=== PATIENT | female | born 2000 | race Two or more races ===

== ENCOUNTER 2023-04-16 17:27 | Outpatient (REF) | payer MEDICAID, SELFPAY ==
[2023-04-17 03:39] LABS: CT PCR NOT DETECTED (Not Detect.); NG PCR NOT DETECTED (Not Detect.)
[2023-04-17 14:16] LABS: BV Int Neg Control Negative (Negative); BV Int Pos Control Positive (Positive)
== END 2023-04-16 17:28 | disposition home or self-care (01) ==
LOC: HO.CHCLNP 17:27
PROVIDERS: Visit Provider Family Medicine
DX: N76.0 Acute vaginitis (principal); Z20.2 Contact with and (suspected) exposure to infections with a predominantly sexual mode of transmission; Z12.4 Encounter for screening for malignant neoplasm of cervix
CPT/HCPCS: 0353U; 87480; 87510; 87660; 88142

== ENCOUNTER 2024-01-08 11:23 | Outpatient (REF) | payer MEDICAID, SELFPAY ==
[2024-01-08 15:23] LABS: TSH reflex Free T4 0.96 uIU/mL (0.32-4.0)
[2024-01-08 18:43] LABS: Influenza A PCR NEGATIVE (Negative); Influenza B PCR NEGATIVE (Negative); Resp Syncy Virus RNA Qual PCR NEGATIVE (Negative); SARS COV2 PCR INHOUSE NEGATIVE (Negative)
[2024-01-11 03:25] LABS: Syphilis Screen Nonreactive (Nonreactive)
[2024-01-11 04:08] LABS: HIV AB/AG Nonreactive (Nonreactive); HIV Num 1 0.07 S/CO (0.00-0.99); ~HepC Num1 0.09 S/CO (0.00-0.79); ~Hepatitis C Antibody Nonreactive (Nonreactive)
[2024-01-11 23:13] LABS: Prolactin Undiluted 8.4 ng/mL
[2024-01-22 19:23] LABS: Testosterone, Free 3.1 pg/mL (0.1-6.4); Testosterone, Total 34 ng/dL (2-45)
== END 2024-01-08 11:24 | disposition home or self-care (01) ==
LOC: HO.CHCLDS 11:23
PROVIDERS: Visit Provider Family Medicine
DX: R09.81 Nasal congestion (principal); N93.9 Abnormal uterine and vaginal bleeding, unspecified; Z11.3 Encounter for screening for infections with a predominantly sexual mode of transmission
CPT/HCPCS: 0241U; 36415; 83498; 84146; 84402; 84403; 84443; 86780; 86803; 87389

== ENCOUNTER 2025-07-06 14:40 | Outpatient (REF) | payer MEDICAID, SELFPAY ==
--- OUTSIDE RECORDS SUMMARY | 2025-07-06 13:45 | XMS_ITS | Encounter Summary ---
Author Organization [employer] Address [address] [place] [address] Care Team Providers Care Technology Training Associate Name Role Phone Makeda Arteaga MD Primary Care Provider [phone] Reason for Referral * (Routine) - Authorized Specialty Diagnoses / Procedures Referred By Contac t Referred To Contact Diagnoses Encounter for immunization Procedures FLU VACCINE TRIVALENT [phone] (Fluarix) 19 yrs + Makeda Arteaga MD [address] [place] [address] Phone: tel: fax: Referral ID Status Reason Start Date Expiration Date V isits Requested Visits Authorized [id number] Authorized 07/06/2025 07/06/2026 1 1 Reason for Visit * Reason Comments Follow-up Encounter Details Date Type Department Care Team ([facility] st Contact Info) Description 07/06/2025 1:45 PM EST Office Visit [facility] MED & PEDS [address] [place] [address] Makeda Arteaga MD [address] [place] [address] Class 2 obesity without serious comorbidity with body mass index (BMI) of 39.0 to 39.9 in adult, unspecified obesity type (Primary Dx); Dietary counseling; Exercise counseling; Class 2 severe obesity with serious comorbidity and body mass index (BMI) of 36.0 to 36.9 in adult, unspecified obesity type; Abnormal uterine bleeding (AUB); Encounter for immunization Social History Tobacco Use Types Packs/Day Years Used Date Smoking Tobacco: Unknown Depression Answer Date Recorded Patient Health Questionnaire-9 Score 2 06/06/2024 Patient Health Questionnaire-9 Score 2 06/06/2024 Last PHQ-9: Questionnaire Data Not on file 1 08/06/2023 Housing Stability Answer Date Recorded What is your housing situation today? I have lindy gusman 05/26/[address] you li ve. Do you have problems with any of the following? None of the above 05/26/2023 Food Insecurity Answer Date Recorded Within the past 12 months, y ou worried that your food would run out before you got money to buy more: Never True 05/26/2023 Within the past 12 months,th e food you bought just didn't last and you didn't have enough money to get more: Never True Transportation Answer Date Recorded In the past 12 months, has l ack of transportation kept you from medical appts, meetings, work or from getting things needed for daily living? No 05/26/2023 Utilities Answer Date Recorded In the past 12 months, has t he electric, gas, oil or water company threatened to shut off services in your home? No 05/26/2023 Depression Answer Date Recorded Patient Health Questionnaire-2 Score 0 06/06/2024 Internet Access Answer Date Recorded Internet Access Q1 Yes 03/28/2024 Internet Access Q2 Not on file 03/28/2024 Comments No Sex and Gender Information Value Date Recorded Sex Assigned at Female 10/23/2022 4:32 PM EDT Legal Sex Female 4:30 PM EDT Gender Identity Female 10/23/2022 4:32 PM EDT Sexual Orientation Straight 10/23/2022 4: 32 PM EDT documented as of this encounter Last Filed Vital Signs Vital Sign Reading Time Taken Comments Blood Pressure 132/84 07/06/2025 1:53 PM EST Pulse 84 07/06/2025 1:53 PM EST Temperature 36.9 C (98.4 F) 07/06/2025 1:53 PM EST Respiratory Rate 20 07/06/2025 1:53 PM EST Oxygen Saturation 98% 07/06/2025 1:53 PM EST Inhaled Oxygen Concentration - - Weight 108 kg (237 lb 3.2 oz) 07/06/2025 1:53 PM EST Height 171 cm (5' 7.32 ) 07/06/2025 1:53 PM EST Body Mass Index 36.8 07/06/2025 1:53 PM EST documented in this encounter Progress Notes * Makeda Arteaga MD - 07/06/2025 1:45 PM EST Subjective Patient ID: Al Rob is a 25 y.o. female who presents for Follow-up. Al Rob is a female patient presenting for follow-up regarding weight management, suspected hormone imbalance, and gastrointestinal symptoms. She reports concerns about hormone imbalance, noting increased hair growth on her mustache and chest since discontinuing her previous medication, along with changes in her intrinsic sexual desire. She describes persistent gastrointestinal symptoms including chronic stomach inflammation, bloating, and a rock-hard feeling in her abdomen, though shenotes more regular bowel movements with increased water intake and dietary changes. The patient had been on GLP-1 medication (initially Wegovy, then switched to Zepbound due to insurance requirements) for weight management but discontinued treatment due to loss of insurance coverage. She achieved significant weight loss, starting at 252 pounds in April of last year, reaching a low of 215 pounds in October, then 223 pounds in January, and currently weighs 237 pounds. She reports responding well to Zepbound and expresses desire to restart the medication if insurance is able to cover prescription. She continues to experience migraines for which Tylenol is ineffective, requesting ibuprofen for management. The patient did not complete ordered laboratory work in January and acknowledges this non-adherence. She reports a significant family stressor, noting that her mother recently fainted while doing hair, was unconscious for an hour, is currently hospitalized, and has surgery scheduled for July 13. Medical History - Diabetes mellitus - PCOS (polycystic ovary syndrome) - being tested for Medications: - Wegovy - Started in April last year, switched to Zepbound due to insurance - Zepbound - Switched from Wegovy due to insurance, discontinued when lost insurance, responded well with fewer side effects compared to Wegovy Family History - Mother: Recent hospitalization for syncope, scheduled for surgery on July 13 Social History - Diet: Currently changing diet and drinking more water - Exercise: Advised to continue with exercise routine - Substance Use: No soda consumption Immunizations - Influenza: Patient accepted flu shot during this visit Review of Systems Gastrointestinal: Positive for abdominal bloating and inflammation, reports stomach feels rock hard. Endocrine: Positive for hair growth on mustache and chest, decreased intrinsic sexual desire. Neurological: Positive for migraines, reports Tylenol is not effective. Review of Systems Objective BP 132/84 Pulse 84 Temp 98.4 ??F (36.9 ??C) (Oral) Resp 20 Ht 5' 7.32 (1.71 m) Wt 237 lb3.2 oz (108 kg) SpO2 98% BMI 36.80 kg/m?? Physical Exam Constitutional: General: She is not in acute distress. Appearance: She is obese. She is not ill-appearing. HENT: Head: Normocephalic and atraumatic. Nose: No congestion. Pulmonary: Effort: Pulmonary effort is normal. No respiratory distress. Breath sounds: Normal breath sounds. Musculoskeletal: Cervical back: Normal range of motion. Neurological: General: No focal deficit present. Mental Status: She is alert. Psychiatric: Mood and Affect: Mood normal. Assessment/Plan Problem List Items Addressed This Visit Class 2 obesity without serious comorbidity with body mass index (BMI) of 39.0 to 39.9 in adult - Primary Relevant Medications Tirzepatide-Weight Management (Zepbound) 2.5 MG/0.5ML solution auto-injector Other Relevant Orders Lipid Panel, Standard Abnormal uterine bleeding (AUB) Relevant Medications ibuprofen 800 MG tablet Other Relevant Orders 17-Hydroxyprogesterone Comprehensive metabolic panel Insulin, fasting , urine Prolactin Testosterone, free, total TSH Other Visit Diagnoses Dietary counseling Relevant Medications Tirzepatide-Weight Management (Zepbound) 2.5 MG/0.5ML solution auto-injector Exercise counseling Relevant Medications Tirzepatide-Weight Management (Zepbound) 2.5 MG/0.5ML solution auto-injector Class 2 severe obesity with serious comorbidity and body mass index (BMI) of 36.0 to 36.9 in adult,unspecified obesity type Relevant Medications Tirzepatide-Weight Management (Zepbound) 2.5 MG/0.5ML solution auto-injector Encounter for immunization Relevant Medications ibuprofen 800 MG tablet Other Relevant Orders FLU VACCINE TRIVALENT [phone] (Fluarix) 19 yrs + (Completed) Al Rob is a female patient with diabetes and obesity presenting for hormone imbalance concerns, gastrointestinal symptoms, and weight management follow-up after discontinuing GLP-1 medication due to insurance issues. Suspected hormone imbalance Assessment: Patient reports symptoms suggestive of hormonal imbalance including increased hair growth on mustache and chest since discontinuing previous medication, decreased intrinsic sexual desire,and associated pain. These symptoms were not present when she was on her previous medication regimen. Clinical suspicion for PCOS given the hirsutism presentation. Plan: - Order hormone testing for PCOS evaluation - Schedule pelvic ultrasound on July 13 Gastrointestinal symptoms Assessment: Patient experiencing chronic abdominal bloating and inflammation with rock-hard feelingin stomach. She reports improved bowel regularity with increased water intake and dietary modifications. Plan: - Continue current dietary modifications and increased water intake Obesity and diabetes management Assessment: Patient has lost 29 pounds total, starting at 252 pounds, reaching lowest weight of 215pounds in October, with current weight of 237 pounds. Previously responded well to Wegovy then Zepbound but discontinued due to loss of insurance coverage. Patient preferred Wegovy over Zepbound due tofewer side effects. Insurance approval challenges continue with Zepbound coverage. Plan: - Submit prior authorization for Zepbound - Start Zepbound at 2.5 mg with monthly dose increases - Continue calorie deficit, maintenance diet, exercise, and no soda - Follow up in 4 weeks to approve medication and increase dose Migraine headaches Assessment: Patient reports migraines that are not effectively managed with Tylenol and requests low-dose ibuprofen for better symptom control. Plan: - Prescribe ibuprofen for migraine management Laboratory monitoring Assessment: Patient did not complete laboratory studies in January as previously ordered. Current labscannot be drawn today due to non-fasting status. Plan: - Order laboratory studies - Patient can complete labs today if has not eaten, otherwise complete when fasting Preventive care Assessment: Patient due for routine immunizations. Plan: - Administer influenza vaccination documented in this encounter Plan of Treatment Scheduled Orders Name Type Priority Associated Diagnoses Orde r Schedule 17-Hydroxyprogesterone Lab Routine Abnormal uterine bleeding (AUB) Expected: 07/06/2025 (Approximate), Expires: 07/06/2026 , urine Lab Routine Abnormal uterine bleeding (AUB) Expected: 07/06/2025 (Approximate), Expires: 07/06/2026 Prolactin Lab Routine Abnormal uterine bleeding (AUB) Expected: 07/06/2025 (Approximate), Expires: 07/06/2026 Testosterone, free, total Lab Routine Abnormal uterine bleeding (AUB) Expected: 07/06/2025 (Approximate), Expires: 07/06/2026 documented as of this encounter Procedures Procedure Name Priority Date/Time Associated Diagnosis Comments INSULIN Routine 07/06/2025 2:42 PM EST Abnormal uterine bleeding (AUB) TSH Routine 07/06/2025 2:42 PM EST Abnormal uterine bleeding (AUB) LIPID PANEL, STANDARD Routine 07/06/2025 2:42 PM EST Class 2 obesity without serious comorbidity with body mass index (BMI) of 39.0 to 39.9 in adult, unspecified obesity type COMPREHENSIVE METABOLIC PANEL Routine 07/06/2025 2:42 PM EST Abnormal uterine bleeding (AUB) documented in this encounter Results * Lipid Panel, Standard (07/06/2025 2:42 PM EST) Triglycerides 70 <150 mg/dL [facility] Comment:Desirable Triglyceri de: less than 150 mg/dLBorderline High Triglyceride 150-199 mg/dLHigh Triglyceride: 200-499 mg/dLVery High Triglyceride: greater than or equal to 5OO mg/dL Cholesterol 151 <200 mg/dL [facility] Comment:Desirable Cholestero l: less than 200 mg/dLBorderline High Cholesterol: 200-239 mg/dLHigh Cholesterol: greater than 239 mg/dL LDL Cholesterol Calculated 83 <100 mg/dL [facility] Comment:Desirable LDL: less than 100 mg/dLNear Optimal/Above Optimal LDL: 110- 129 mg/dLBorderline High LDL: 130-159 mg/dLHigh LDL: 160-189 mg/dLVery High LDL: greater than or equal to 190 mg/dL HDL Cholesterol 54 >40 mg/dL [facility] Comment:Desirable HDL: great er than 40 mg/dL Note: This HDL assay may give artificially low results in patients with liver disease. Blood Venous blood specimen / Unknown 07/06/2025 2:42 PM EST 07/06/2025 5:48 PM EST Result [facility] Makeda Arteaga MD LAB BLOOD ORDERABLES Final Re sult Performing Organization Address [facility] Co de Phone Number [facility] [address] [place] [phone] * TSH (07/06/2025 2:42 PM EST) Thyroid Stimulating Hormone 0.50 0.32 - 4.0 uIU/mL [facility] Comment:TSH 3rd Generation ( [employer]) Blood Venous blood specimen / Unknown 07/06/2025 2:42 PM EST 07/06/2025 5:48 PM EST Makeda Arteaga MD LAB BLOOD ORDERABLES Final Re sult Performing Organization Address [facility] Phone Number [facility] [address] [place] [phone] * Insulin, fasting (07/06/2025 2:42 PM EST) Insulin 9 2 - 29 uU/mL [facility] Comment:This test was perfor med using the [employer] chemiluminescentmethod. Values obtained from different assay methods cannot beused interchangeably. This insulin assay shows a possiblecross-reactivity with antibodies generated against insulin(immunoreactive insulin and some patients treated withbovine or porcine insulin). Insulin levels may be measuredlower in patients with insulin autoimmune syndrome orfamilial high pro-insulinemia. Blood Venous blood specimen / Unknown 07/06/2025 2:42 PM EST 07/06/2025 5:48 PM EST Makeda Arteaga MD LAB BLOOD ORDERABLES Final Re sult Performing Organization Address [facility] Co de Phone Number [facility] [address] [place] [phone] * (ABNORMAL) Comprehensive metabolic panel (07/06/2025 2:42 PM EST) Sodium 135 135 - 145 mmol/L [facility] Potassium 3.9 3.3 - 5.1 mmol/L [facility] Chloride 108 96 - 108 mmol/L [facility] Carbon Dioxide 20(L) 22 - 29 mmol/L [facility] Anion Gap 11(L) 12 - 20 [facility] Urea Nitrogen (BUN) 9 9 - 16 mg/dL [facility] Creatinine, Serum 0.67 0.5 - 1.4 mg/dL [facility] Estimated Glomerular Filt Rate >60 [facility] Comment:Chronic Kidney Disea se: Estimated GFR < 60 mL/min/[id number] Kidney Disease: Estimated GFR < 15 mL/min/1.73m2 Glucose 84 60 - 115 mg/dL [facility] Calcium 8.9 8.4 - 10.2 mg/dL [facility] Bilirubin, Total 0.8 0.0 - 1.0 mg/dL [facility] Aspartate Amino Transferase 22 5 - 31 U/L [facility] Alanine Aminotransferase 9 0 - 31 U/L [facility] Total Protein 7.5 6.5 - 8.0 g/dL [facility] Albumin Level 4.1 3.5 - 5.0 g/dL [facility] Alkaline Phosphatase 82 39 - 117 U/L [facility] Blood Venous blood specimen / Unknown 07/06/2025 2:42 PM EST 07/06/2025 5:48 PM EST us Makeda Arteaga MD LAB BLOOD ORDERABLES Final Re sult [facility] [address] [place] [phone] documented in this encounter Visit Diagnoses Diagnosis Class 2 obesity without serious comorbidity with body mass index (BMI) of 39.0 to 39.9 in adult, unspecified obesity type- Primary Dietary counseling Dietary surveillance and counseling Exercise counseling Class 2 severe obesity with serious comorbidity and body mass index (BMI) of 36.0 to 36.9 in adult, unspecified obesity type Abnormal uterine bleeding (AUB) Encounter for immunization documented in this encounter Additional Health Concerns Assessment Noted Time PHQ-9 Depression Total Score: 2 06/06/20 24 9:14 AM EST documented as of this encounter Care Teams Technology Training Associate Relationship Specialty Start Date End Date Makeda Arteaga MD [address] [place] [phone] PCP - General Family Medicine 11/24/22 documented as of this encounter
[2025-07-06 18:26] LABS: Alanine Aminotransferase 9 U/L (0-31); Albumin Level 4.1 g/dL (3.5-5.0); Alkaline Phosphatase 82 U/L (39-117); Anion Gap 11 (12-20); Aspartate Amino Transferase 22 U/L (5-31); Blood Urea Nitrogen 9 mg/dL (9-16); Calcium 8.9 mg/dL (8.4-10.2); Carbon Dioxide 20 mmol/L (22-29); Chloride 108 mmol/L (96-108); Cholesterol 151 mg/dL (<200); Estimated Glomerular Filt Rate > 60; HDL Cholesterol 54 mg/dL (>40); Potassium 3.9 mmol/L (3.3-5.1); Sodium 135 mmol/L (135-145); Total Protein 7.5 g/dL (6.5-8.0); Triglycerides 70 mg/dL (<150)
[2025-07-06 18:44] LABS: Thyroid Stimulating Hormone 0.50 uIU/mL (0.32-4.0)
--- OUTSIDE RECORDS SUMMARY | 2025-07-06 22:16 | XMS_ITS | Encounter Summary ---
Author Organization [employer] Address [address] [facility] [address] [place] [address] Care Team Providers Care Registered Medical Assistant Name Role Phone Makeda Arteaga MD Primary Care Provider [phone] Encounter Details Date Type Department Care Team ([facility] Contact Info) Description 03/23/2024 Orders Only [facility] [address] [place], [place] [phone] Provider, MD Magnus Social History Tobacco Use Types Packs/Day Years Used Date Smoking Tobacco: Unknown Depression Answer Date Recorded Patient Health Questionnaire-9 Score 6 12/31/2022 Housing Stability Answer Date Recorded What is [...] Date Recorded Patient Health Questionnaire-2 Score 0 12/31/2022 Comments Unknown Sex and Gender Information Value Date Recorded Sex Assigned at Female 10/23/2022 4:32 PM EDT Legal Sex Female 4:30 PM EDT Gender Identity Female 10/23/2022 4:32 PM EDT Sexual Orientation Straight 10/23/2022 4: 32 PM EDT documented as of this encounter Plan of Treatment Not on file documented as of this encounter Procedures Procedure Name Priority Date/Time Associated Diagnosis Comments US PELVIC AND TRANSVAGINAL Routine 09/16 12:47 PM EST US PELVIS TRANSABDOMINAL Routine 022 12:49 PM EST documented in this encounter Results * US PELVIC AND TRANSVAGINAL (09/16/2021 12:47 PM EST) Anatomical Region Laterality Modality Ultrasound us Historical Provider MD BURKETT US PROCEDURES Final R esult * US Pelvis Transabdominal (08/16/2021 12:49 PM EST) Anatomical Region Laterality Modality Pelvis Ultrasound us Historical Provider MD BURKETT US PROCEDURES Final R esult documented in this encounter Visit Diagnoses Not on filedocumented in this encounter Additional Health Concerns Assessment Noted Time PHQ-9 Depression Total Score: 6 01/01/20 23 9:11 AM EDT documented as of this encounter Care Teams Registered Medical Assistant Relationship Specialty Start Date End Date Makeda Arteaga MD [address] [place] [address] PCP - General Family Medicine 11/24/22 documented as of this encounter
--- OUTSIDE RECORDS SUMMARY | 2025-07-06 22:16 | XMS_ITS | Encounter Summary ---
Author Organization [employer] Address [address] [facility] [address] [place] [address] Care Team Providers Care Data Management Consultant Name Role Phone Makeda Arteaga MD Primary Care Provider [phone] Encounter Details Date Type Department Care Team ([facility] Contact Info) Description 07/04/2025 Telephone [facility] CHC MED & PEDS [address] [place], [place] [phone] Makeda Arteaga MD [address] [place] [address] Social History Tobacco Use Types Packs/Day Years [...] on file documented as of this encounter Visit Diagnoses Not on filedocumented in this encounter Additional Health Concerns Assessment Noted Time PHQ-9 Depression Total Score: 2 06/06/20 24 9:14 AM EST documented as of this encounter Care Teams Data Management Consultant Relationship Specialty Start Date End Date Makeda Arteaga MD [address] [place] [phone] PCP - General Family Medicine 11/24/22 documented as of this encounter
--- OUTSIDE RECORDS SUMMARY | 2025-07-06 22:16 | XMS_ITS | Encounter Summary ---
Author Organization [employer] Address [address] [facility] [address] [place] [address] Care Team Providers Care Field Specialist Name Role Phone Makeda Arteaga MD Primary Care Provider [phone] Reason for Visit * Reason Onset Date Comments Med Refill 07/03/2024 Encounter Details Date Type Department Care Team ([facility] st Contact Info) Description 07/03/2024 Refill [facility] MED & PEDS [address] [place] [address] Makeda Arteaga MD [address] [place] [address] Social History Tobacco Use Types Packs/Day Years [...] Access Q2 Not on file 03/28/2024 Comments Unknown Sex and Gender Information Value [...] documented as of this encounter Care Teams Field Specialist Relationship Specialty Start Date End Date Makeda Arteaga MD [address] [place] [address] PCP - General Family Medicine 11/24/22 documented as of this encounter
--- OUTSIDE RECORDS SUMMARY | 2025-07-06 22:16 | XMS_ITS | Clinical Summary ---
Author Organization [facility] Address [address] [place] [address] Care Team Providers Care Dredge Master Name Role Phone Unavailable Primary Care Provider Unavailabl e Social History Tobacco Use Types Packs/Day Years Used Date Smoking Tobacco: Never Assessed Comments Unknown Sex and Gender Information Value Date Recorded Sex Assigned at Not on file Legal Sex Female 6:17 AM EST Gender Identity Not on file Sexual Orientation Not on file Plan of Treatment Health Maintenance Due Date Last Done Comments HPV Vaccines (1 - 3-dose series) 2014 DTaP,Tdap,and Td Vaccines (1 - Tdap) 2018 Hepatitis B Vaccines (1 of 3 - 19+ 3-dose series) 2018 Cervical Cancer Screening: P ap Smear 2020 Depression Screening 07/27/2024 COVID-19 Vaccine (1 - 2024-2 6 season) 2025 Influenza Vaccine (#1) 2025 RSV Immunization Adult Patie nts (1 - 1-dose 75+ series) 2074 HIB Vaccines Aged Out No longer eligi ble based on patient's age to complete this topic Hepatitis A Vaccines Aged Out No long er eligible based on patient's age to complete this topic IPV Vaccines Aged Out No longer eligi ble based on patient's age to complete this topic MMR Vaccines Aged Out No longer eligi ble based on patient's age to complete this topic Meningococcal ACWY Vaccine Aged Out N o longer eligible based on patient's age to complete this topic Meningococcal B Vaccine Aged Out No l onger eligible based on patient's age to complete this topic Pneumococcal Vaccine: Pediat rics (0 to 5 Years) and At-Risk Patients (6 to 49 Years) Aged Out No longer eligible b ased on patient's age to complete this topic RSV Immunization Patients Un skylar 20 months Aged Out No longer eligible b ased on patient's age to complete this topic Varicella Vaccines Aged Out No longer eligible based on patient's age to complete this topic
--- OUTSIDE RECORDS SUMMARY | 2025-07-06 22:16 | XMS_ITS | Encounter Summary ---
Author Organization [employer] Address [address] [facility] [address] [place] [address] Care Team Providers Care Chemical Engineer Name Role Phone Makeda Arteaga MD Primary Care Provider [phone] Reason for Visit * Reason Onset Date Comments chart prep 07/04/2025 Encounter Details Date Type Department Care Team ([facility] st Contact Info) Description 07/04/2025 Telephone [facility] CHC MED & PEDS [address] [place], [place] [phone] Makeda Arteaga MD [address] [place] [address] chart prep Social History Tobacco Use Types Packs/Day Years [...] PM EDT documented as of this encounter Miscellaneous Notes * Telephone Encounter - Nimisha Palacios [place] - 07/04/2025 3:34 PM EST Chart Prep Labs: not done Images: not done Referrals: no show Vaccines due: Covid and Flu Screenings: Overdue care gaps: SBIRT, SDOH, PHQ-9, and Disability screen documented in this encounter Plan of Treatment Not on file documented as of this encounter Visit Diagnoses Not on filedocumented in this encounter Additional Health Concerns Assessment Noted Time PHQ-9 Depression Total Score: 2 06/06/20 24 9:14 AM EST documented as of this encounter Care Teams Chemical Engineer Relationship Specialty Start Date End Date Makeda Arteaga MD [address] [place] [address] PCP - General Family Medicine 11/24/22 documented as of this encounter
--- OUTSIDE RECORDS SUMMARY | 2025-07-06 22:16 | XMS_ITS | Encounter Summary ---
Author Organization [employer] Address [address] [facility] 7t [place] [address] Care Team Providers Care Band Reamer Machine Operator Name Role Phone Makeda Arteaga MD Primary Care Provider [phone] Reason for Visit * Reason Onset Date Comments Med Refill 03/10/2024 Encounter Details Date Type Department Care Team ([facility] st Contact Info) Description 03/10/2024 Refill [facility] [address] [place] [address] Makeda Arteaga MD [address] [place] [address] Social History Tobacco Use Types Packs/Day Years [...] Time PHQ-9 Depression Total Score: 6 01/01/20 9:11 AM EDT documented as of this encounter Care Teams Band Reamer Machine Operator Relationship Specialty Start Date End Date Makeda Arteaga MD [address] [place] [address] PCP - General Family Medicine 11/24/22 documented as of this encounter
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
--- OUTSIDE RECORDS SUMMARY | 2025-07-06 22:16 | XMS_ITS | Encounter Summary ---
Author Organization [employer] Address [address] [address] [facility] [facility] [address] [place] [address] Care Team Providers Care Hat Trimmer Name Role Phone Makeda Arteaga MD Primary Care Provider [phone] Encounter Details Date Type Department Care Team (Latest Contact Info) Description 07/05/2025 Travel Social History Tobacco Use Types Packs/Day Years [...] documented as of this encounter Care Teams Hat Trimmer Relationship Specialty Start Date End Date Makeda Arteaga MD [address] [place] [address] PCP - General Family Medicine 11/24/22 documented as of this encounter
--- OUTSIDE RECORDS SUMMARY | 2025-07-06 22:16 | XMS_ITS | Encounter Summary ---
Author Organization [employer] Address [address] [facility] [address] [place] [address] Care Team Providers Care Yard Caller Name Role Phone Makeda Arteaga MD Primary Care Provider [phone] Encounter Details Date Type Department Care Team ([facility] st Contact Info) Description 09/30/2024 Orders Only [facility] [address] [place] [address] Zofia Lomeli MD [address] [place] [address] Social History Tobacco Use Types Packs/Day Years [...] documented as of this encounter Care Teams Yard Caller Relationship Specialty Start Date End Date Makeda Arteaga MD [address] [place] [phone] PCP - General Family Medicine 11/24/22 documented as of this encounter
--- OUTSIDE RECORDS SUMMARY | 2025-07-06 22:16 | XMS_ITS | Encounter Summary ---
Author Organization [employer] Address [address] [facility] [address] [place] [address] Care Team Providers Care Product Safety Administrator Name Role Phone Makeda Arteaga MD Primary Care Provider [phone] Encounter Details Date Type Department Care Team (Latest Contact Info) Description 07/06/2025 Travel Social History Tobacco Use Types Packs/Day [...] documented as of this encounter Care Teams Product Safety Administrator Relationship Specialty Start Date End Date Makeda Arteaga MD [address] [place] [address] PCP - General Family Medicine 11/24/22 documented as of this encounter
--- OUTSIDE RECORDS SUMMARY | 2025-07-06 22:16 | XMS_ITS | Encounter Summary ---
Author Organization [employer] Address [address] [facility] [address] [place] [address] Care Team Providers Care Checkerer Hand Name Role Phone Makeda Arteaga MD Primary Care Provider Reason for Visit * Reason Onset Date Comments Med Refill 06/06/2024 Encounter Details Date Type Department Care Team ([facility] st Contact Info) Description 06/06/2024 Refill [facility] [address] [place] [address] Makeda Arteaga MD [address] [place] [address] Social History Tobacco Use Types Packs/Day Years [...] PM EDT documented as of this encounter Functional Status * Over the past 2 weeks, how often have you been bothered by any of the following problems? Question Answer Date of Assessment Author Patient Health Questionnaire-2 Score 0 05/27 9:14 AM Nimisha Lott MA * How difficult have these problems made it for you to do your work, take care of things at home, or get along with other people? Answer Date of Assessment Author Not difficult at all 06/06/2024 9:14 AM Nimisha Burrows MA * Over the past 2 weeks, how often have you been bothered by any of the following problems? Question Answer Date of Assessment Author Little interest or pleasure in doing things Not at all 06/06/2024 9:14 AM Nimisha Lott M A Feeling down, depressed, or hopeless Not at all 06/06/2024 9:14 AM Nimisha Lott M A Trouble falling or staying asleep, or sleeping too much Not at all 06/06/2024 9:14 AM Nimisha Lott MA Feeling tired or having luke le energy Several days 06/06/2024 9:14 AM Nimisha Lott M A Poor appetite or overeating Several days 06/06/2024 9: 14 AM Nimisha Lott MA Feeling bad about yourself - or that you are a failure or have let yourself or your family down Not at all 06/06/2024 9:14 AM Nimisha Lott M A Trouble concentrating on things, such as reading the newspaper or watching television Not at all 06/06/2024 9:14 AM Nimisha Lott M A Moving or speaking so slowly that other people could have noticed? Or the opposite - being so fidgety or restless that you have been moving around a lot more than usual. Not at all 06/06/2024 9:14 AM Nimisha Lott MA Thoughts that you would be better off or hurting yourself in some way Not at all 06/06/2024 9:14 AM Nimisha Lott MA Patient Health Questionnaire -9 Score 2 06/06/2024 9:14 AM Nimisha Lott M A documented as of this encounter Plan of Treatment Not on file documented as of this encounter Visit Diagnoses Not on filedocumented in this encounter Additional Health Concerns Assessment Noted Time PHQ-9 Depression Total Score: 2 06/06/20 24 9:14 AM EST documented as of this encounter Care Teams Checkerer Hand Relationship Specialty Start Date End Date Makeda Arteaga MD [address] [place] [address] PCP - General Family Medicine 11/24/22 documented as of this encounter
== END 2025-07-06 14:41 | disposition home or self-care (01) ==
LOC: HO.CHCLDS 14:40
PROVIDERS: Visit Provider Family Medicine
DX: E66.812 Obesity, class 2 (principal); Z68.39 Body mass index [BMI] 39.0-39.9, adult; N93.9 Abnormal uterine and vaginal bleeding, unspecified
CPT/HCPCS: 36415; 80053; 80061; 83498; 83525; 84146; 84402; 84403; 84443